=== PATIENT | female | born 1975 | race Two or more races ===

== ENCOUNTER 2017-11-23 15:00 | Emergency (ER) | payer SELFPAY ==
[2017-11-23 17:08] LABS: INFLUENZA A PATIENT NEGATIVE (NEGATIVE)
[2017-11-23 17:09] LABS: INFLUENZA B PATIENT POSITIVE (NEGATIVE); OBC FLU VALID
[2017-11-24 08:15] LABS: NEGATIVE OBC STREP NEG; POSITIVE OBC STREP POS
== END 2017-11-23 17:15 | disposition home or self-care (01) ==
LOC: ER 17:15
DX: J10.1 Influenza due to other identified influenza virus with other respiratory manifestations (principal)
CPT/HCPCS: 87070; 87804; 87804-59; 87880; 99284